=== PATIENT | female | born 1975 | race Caucasian/White ===

== ENCOUNTER 2018-05-28 15:21 | Emergency (ER) | payer OTHER, MEDICARE ==
[~2018-05-28] VITALS: Ht 170.2 cm; Wt 115.0 kg
[~2018-05-28 15:21] MED LIST: DEXL30CA3 PO; GABA300C PO; HYDR-4383 PO; HYDR25TA4 PO; LANTUS SUBCUT; LEVO112T5 PO; LIRA0.6P SQ; MELO-102 PO; VILA20TA PO
[2018-05-28 15:23] VITALS: BP 167/80
[2018-05-28] MEDS ORDERED: ketorolac tromethamine 15mg/ml inj. IM ONE (16:05)
[2018-05-28] MEDS ORDERED: orphenadrine citrate 60mg/2ml inj. IM ONE (16:05)
[2018-05-28] MEDS ORDERED: METH-360 PO (16:32)
[2018-05-28] MEDS ORDERED: NAPR-56 PO (16:32)
== END 2018-05-28 16:57 | disposition home or self-care (01) ==
LOC: ER 15:21
DX: M25.511 Pain in right shoulder (principal); M54.2 Cervicalgia; Z88.5 Allergy status to narcotic agent; Z91.040 Latex allergy status; Z88.8 Allergy status to other drugs, medicaments and biological substances; Z79.4 Long term (current) use of insulin; Z79.899 Other long term (current) drug therapy; V47.1XXA Car passenger injured in collision with fixed or stationary object in nontraffic accident, initial encounter; Y93.89 Activity, other specified; Y92.410 Unspecified street and highway as the place of occurrence of the external cause; Y99.8 Other external cause status
CPT/HCPCS: 73060; 96372; 99283; J1885; J2360

== ENCOUNTER 2021-01-31 00:02 | Emergency (ER) | payer MEDICARE, MEDICAID ==
[~2021-01-31] VITALS: Ht 172.7 cm; Wt 99.1 kg
[~2021-01-31 00:02] MED LIST changes: +METH-360 PO
[2021-01-31 00:05] VITALS: BP 102/72
[2021-01-31] MEDS ORDERED: clindamycin 150mg capsule PO ONE (02:25)
[2021-01-31] MEDS ORDERED: CLIN-97 PO (02:27)
== END 2021-01-31 02:53 | disposition home or self-care (01) ==
LOC: ER 00:03
DX: L03.115 Cellulitis of right lower limb (principal); Z79.4 Long term (current) use of insulin; Z79.2 Long term (current) use of antibiotics; Z79.899 Other long term (current) drug therapy; Z88.2 Allergy status to sulfonamides; Z91.040 Latex allergy status; Z88.8 Allergy status to other drugs, medicaments and biological substances
CPT/HCPCS: 99283